=== PATIENT | male | born 1965 | race Caucasian/White ===

== ENCOUNTER 2020-09-12 22:06 | Inpatient (IN) ==
[2020-09-12] MEDS ORDERED: Ondansetron 4 MG/2 ML VIAL IVP ONE (22:18)
[2020-09-12] MEDS ORDERED: Isovue-370 500 ML BOTTLE IVP ONE (22:45)
[2020-09-12 22:48] LABS: Red Cell Distribution Width 13.2 % (11.5-14.5)
[2020-09-12] MEDS: Nitroglycerin 0.4 MG TAB.SUBL SL PRN ×3 (23:08→23:18)
[2020-09-12 23:12] LABS: BUN/Creatinine Ratio 14 (6-26); Blood Urea Nitrogen 9 mg/dL (6-20); Calcium 7.9 mg/dL (8.6-10.3); Carbon Dioxide 25 mEq/L (23-29); Chloride 100 mEq/L (98-107); Glucose 112 mg/dL (70-105); Osmolality,Calculated 283 (280-300); Sodium 137 mEq/L (136-145); eGFR For African Americans > 60 (> 60); eGFR For Non-African Americans > 60 (> 60)
[2020-09-12 23:13] LABS: Troponin I < 0.03 ng/mL (< 0.04)
[2020-09-12 23:20] LABS: INR 1.1; Prothrombin Time 13.2 Seconds (9.4-12.1)
[2020-09-12 23:23] LABS: Activated Partial Thrombo Time 26.3 Seconds (26.0-36.0)
[2020-09-12 23:30] LABS: Basophils # 0.1 K/mcL (0.0-0.2); Basophils % 0.7 %; Eosinophils % 0.3 %; Hematocrit 42.7 % (37.5-50.1); Hemoglobin 15.8 g/dL (12.9-16.9); Immature Granulocytes % 0.4 % (0-4); Lymphocytes # 0.9 K/mcL (0.6-4.6); Lymphocytes % 12.6 %; Mean Corpuscular Hemoglobin 35.3 pg (28.0-33.3); Mean Corpuscular Volume 95.3 fL (83.0-100.0); Mean Platelet Volume 9.3 fL (9.4-12.4); Monocytes # 0.7 K/mcL (0.0-1.3); Monocytes % 9.7 %; Neutrophils # 5.4 K/mcL (1.6-8.9); Platelet Count 133 K/mcL (140-400); Red Blood Count 4.48 M/mcL (4.19-5.50); Segmented Neutrophils % 76.3 %
[2020-09-13] MEDS ORDERED: *HR* LORazepam 2 MG/ML VIAL IVP ONE (00:41)
[2020-09-13 00:54] LABS: Adenovirus Not Detected (Not Detect); Bordetella Pertussis Not Detected (Not Detect); Chlamydophila pneumoniae Not Detected (Not Detect); Coronavirus 229E Not Detected (Not Detect); Coronavirus HKU1 Not Detected (Not Detect); Coronavirus NL63 Not Detected (Not Detect); Coronavirus OC43 Not Detected (Not Detect); Human Metapneumovirus Not Detected (Not Detect); Human Rhinovirus/Enterovirus Not Detected (Not Detect); Influenza A Subtype 2009 H1 Not Detected (Not Detect); Influenza B Not Detected (Not Detect); Mycoplasma pneumoniae Not Detected (Not Detect); Parainfluenza Virus 1 Not Detected (Not Detect); Parainfluenza Virus 2 Not Detected (Not Detect); Parainfluenza Virus 3 Not Detected (Not Detect); Parainfluenza Virus 4 Not Detected (Not Detect); Respiratory Syncytial Virus Not Detected (Not Detect); SARS-CoV-2 Not Detected (Not Detect)
[2020-09-13] MEDS ORDERED: Naloxone 0.4 MG/ML INJ IVP PRN (01:34)
[2020-09-13] MEDS ORDERED: Acetaminophen 325 MG TABLET PO PRN (01:34)
[2020-09-13] MEDS ORDERED: *HR* Promethazine 25 MG/ML VIAL IM PRN (01:34)
[2020-09-13] MEDS ORDERED: Ondansetron 4 MG/2 ML VIAL IVP PRN (01:34)
[2020-09-13] MEDS ORDERED: *HR* LORazepam 2 MG/ML VIAL IVP PRN (01:36)
[2020-09-13] MEDS ORDERED: Pantoprazole 40 MG VIAL IVP ONE (02:13)
[2020-09-13] MEDS ORDERED: *HR* Heparin 5,000 UNIT/ML VIAL SQ SCH (06:00)
[2020-09-13] MEDS ORDERED: Perflutren Lipid Microsphere 1.3 ML in 0.9 % Sodium Chloride 8.7 ML IVP PRN (07:54)
[2020-09-13 08:38] LABS: Basophils % 0.5 %; Eosinophils # 0.1 K/mcL (0.0-0.6); Eosinophils % 1.3 %; Hematocrit 38.7 % (37.5-50.1); INR 1.2; Immature Granulocytes % 0.5 % (0-4); Lymphocytes # 1.1 K/mcL (0.6-4.6); Mean Corpuscular HGB Conc 36.7 g/dL (31.6-35.5); Mean Corpuscular Hemoglobin 35.4 pg (28.0-33.3); Mean Corpuscular Volume 96.5 fL (83.0-100.0); Mean Platelet Volume 9.3 fL (9.4-12.4); Monocytes # 0.6 K/mcL (0.0-1.3); Monocytes % 10.1 %; Neutrophils # 4.4 K/mcL (1.6-8.9); Platelet Count 124 K/mcL (140-400); Prothrombin Time 13.9 Seconds (9.4-12.1); Red Blood Count 4.01 M/mcL (4.19-5.50); Red Cell Distribution Width 13.4 % (11.5-14.5); Segmented Neutrophils % 70.6 %; White Blood Count 6.2 K/mcL (4.3-11.1)
[2020-09-13 08:39] LABS: Hemoglobin 14.2 g/dL (12.9-16.9)
[2020-09-13 08:46] LABS: Albumin 3.3 g/dL (3.5-5.7); Albumin/Globulin Ratio 1.4 (1.1-2.2); Bilirubin,Direct 0.8 mg/dL (0.0-0.2); Bilirubin,Indirect 1.7 mg/dL (0.0-1.0); Bilirubin,Total 2.5 mg/dL (0.3-1.0); Globulin 2.3 g/dL (2.4-3.5); Total Protein 5.6 g/dL (6.4-8.9)
[2020-09-13 08:55] LABS: BUN/Creatinine Ratio 15 (6-26); Blood Urea Nitrogen 10 mg/dL (6-20); Calcium 7.5 mg/dL (8.6-10.3); Carbon Dioxide 26 mEq/L (23-29); Chloride 102 mEq/L (98-107); Chol/HDL Ratio 6.6 (0-4.9); Cholesterol 204 mg/dL (< 200); Glucose 89 mg/dL (70-105); HDL Cholesterol 31 mg/dL (40-59); LDL Cholesterol,Calculated 136 mg/dL (< 100); Magnesium 1.3 mg/dL (1.6-2.6); Osmolality,Calculated 283 (280-300); Phosphorous 2.4 mg/dL (2.7-4.5); Potassium 3.4 mEq/L (3.5-5.1); Sodium 137 mEq/L (136-145); Triglycerides 185 mg/dL (< 150); Troponin I 0.09 ng/mL (< 0.04); eGFR For African Americans > 60 (> 60); eGFR For Non-African Americans > 60 (> 60)
[2020-09-13] MEDS ORDERED: *HR* Heparin 5,000 UNIT/ML VIAL IVP PRN ×2 (08:58)
[2020-09-13] MEDS ORDERED: *HR* Heparin 5,000 UNIT/ML VIAL IVP ONE (08:58)
[2020-09-13] MEDS ORDERED: Heparin 25,000UNIT/250ML 1/2NS 25,000 UNIT/250 ML IV.SOLN IVC SCH (09:00)
[2020-09-13] MEDS ORDERED: Aspirin 325 MG TABLET PO ONE (09:02)
[2020-09-13] MEDS: *HR* LORazepam 2 MG/ML VIAL IVP PRN ×4 (10:05→20:44)
[2020-09-13] MEDS ORDERED: Regadenoson 0.4 MG/5 ML SYRINGE IVP ONE (11:35)
[2020-09-13] MEDS ORDERED: Potassium Phosphate 44 MEQ in 0.9 % Sodium Chloride 250 ML IVPB ONE (11:44)
[2020-09-13] MEDS ORDERED: Thiamine (B-1) 100 MG, Folic Acid 1 MG, MVI, adult with vitamin K 10 ML in 0.9 % Sodi... IVPB SCH (18:00)
[2020-09-13] MEDS: Pantoprazole 40 MG VIAL IVP SCH (18:10)
[2020-09-13] MEDS ORDERED: Nicotine 14 MG PATCH.TD24 TD SCH (19:45)
[2020-09-14] MEDS: *HR* LORazepam 2 MG/ML VIAL IVP PRN ×3 (00:24→06:49)
[2020-09-14] MEDS: Pantoprazole 40 MG VIAL IVP SCH (06:26)
[2020-09-14] MEDS ORDERED: Thiamine (B-1) 100 MG, Folic Acid 1 MG, MVI, adult with vitamin K 10 ML in 0.9 % Sodi... IVPB SCH (07:00)
[2020-09-14 07:21] VITALS: BP 135/91
[2020-09-14] MEDS ORDERED: Aspirin 81 MG TAB.CHEW PO SCH (09:00)
[2020-09-14] MEDS ORDERED: Metoprolol XL (24 HR) Succ 25 MG TAB.ER.24H PO SCH (09:00)
== END 2020-09-14 08:32 | disposition home or self-care (01) | DRG 313 ==
LOC: 2ANU 22:06 → EMEROOARM 22:06 → 2ANU 09-13 02:33 → SUATTDRO 09-13 15:23
PROVIDERS: ADMIT Internal Medicine; ATTEND Internal Medicine